=== PATIENT | female | born 2000 | race Caucasian/White ===

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

== ENCOUNTER 2020-01-09 17:40 | Emergency (ER) | payer MEDICAID ==
[~2020-01-09] VITALS: Ht 172.7 cm; Wt 63.6 kg
[2020-01-09 18:13] VITALS: BP 110/71
== END 2020-01-09 18:00 | disposition home or self-care (01) ==
LOC: ER 17:40
DX: J06.9 Acute upper respiratory infection, unspecified (principal); Z20.828 Contact with and (suspected) exposure to other viral communicable diseases
CPT/HCPCS: 36415; 87635; 99283